=== PATIENT | male | born 1935 | race Caucasian/White ===

== ENCOUNTER → 2017-02-02 | Outpatient (REF) | LOC: ZLAB.WCH 11:26 | DX: Z01.89 Encounter for other specified special examinations (principal) ==

== ENCOUNTER → 2017-02-10 | Outpatient (REF) | LOC: ZLAB.WCH 09:25 | DX: Z01.89 Encounter for other specified special examinations (principal) ==

== ENCOUNTER → 2017-02-17 | Outpatient (REF) | LOC: ZLAB.WCH 09:15 | DX: Z01.89 Encounter for other specified special examinations (principal) ==

== ENCOUNTER → 2018-08-18 | Outpatient (REF) | LOC: ZLAB.WCH 16:08 | DX: Z01.89 Encounter for other specified special examinations (principal) ==

== ENCOUNTER → 2018-11-04 | Outpatient (REF) | LOC: ZLAB.WCH 15:28 | DX: Z01.89 Encounter for other specified special examinations (principal) ==

== ENCOUNTER 2020-09-10 22:02 | Inpatient (IN) | payer MEDICARE, OTHER ==
[~2020-09-10] VITALS: Ht 182.9 cm; Wt 73.1 kg
[2020-09-10 23:19] LABS: BASO % 0.2 % (0.0-2.0); GRAN # 4.3 (1.4-6.5); GRAN % 75.4 % (42.2-75.2); HEMATOCRIT 43.8 % (42.0-52.0); HEMOGLOBIN 14.8 g/dl (13.5-18.0); LYMPH # 0.9 (1.2-3.4); LYMPH % 15.3 % (20.0-51.0); MEAN CELL VOLUME 94 fl (80.0-100.0); MEAN CORPUSCULAR HEMOGLOBIN 32 pg (27.0-31.0); MEAN CORPUSCULAR HGB CONC 34 g/dl (33.0-37.0); MEAN PLATELET VOLUME 11.9 fl (7.4-10.4); MONO # 0.5 (0.1-0.6); MONO % 8.7 % (1.7-9.3); PLATELET COUNT 130 K/mm3 (130-400); RED BLOOD COUNT 4.66 M/mm3 (4.20-5.60); REDCELL DISTRIBUTION WIDTH-CV 13.3 % (11.5-14.5)
[2020-09-10 23:28] LABS: ALBUMIN 3.7 gm/dL (3.5-5.0); BILIRUBIN,TOTAL 0.6 mg/dL (0.0-1.0); CALCIUM 8.9 mg/dL (8.4-10.2); CREATININE, serum 1.06 (0.66-1.25); TOTAL PROTEIN 7.4 gm/dL (6.4-8.2)
[2020-09-11] MEDS ORDERED: ARICEPT10 MG PO (03:37)
[2020-09-11] MEDS ORDERED: NORVASC 5MG5 MG/TAB PO (03:37)
[2020-09-11] MEDS ORDERED: MOBIC15 MG PO (03:37)
[2020-09-11] MEDS ORDERED: FLOMAX 0.40.4 MG/CAP PO (03:37)
[2020-09-11] MEDS ORDERED: LOPRESSOR 225 MG/TAB PO (03:37)
[2020-09-11] MEDS ORDERED: LIPITOR 40MG TA40 MG PO (03:37)
[2020-09-11] MEDS ORDERED: NAMENDA5 MG PO (03:38)
[2020-09-11] MEDS ORDERED: VITAMIN D31000 I1 PO (04:15)
[2020-09-11] MEDS ORDERED: ASPIRIN 81M81 MG/TA2 PO (04:15)
[2020-09-11] MEDS ORDERED: VITAMIN B12 781 TAB PO (04:16)
[2020-09-11] MEDS ORDERED: B-121000 MCG PO (04:17)
[2020-09-11] MEDS ORDERED: MELATONIN5 M1 SL (04:20)
[2020-09-11] MEDS ORDERED: PHARMASSURE ZIN50 MG PO (04:22)
[2020-09-11] MEDS ORDERED: TYLENOL 325MG325 MG PO (04:23)
[2020-09-11] MEDS ORDERED: PEPCID 20MG TAB20 MG PO (04:23)
[2020-09-11] MEDS ORDERED: IMODIUM 2MG CAPS2 MG PO (04:23)
[2020-09-11] MEDS ORDERED: MILK OF MA400 MG/52 PO (04:24)
[2020-09-11 05:32] VITALS: BP 134/72; PULSE 57; TEMP 98.1
--- NOTE | 2020-09-11 05:40 | NUR ---
Received patient via stretcher from ER. Seen patient drowsy. He opens his eye by verbal command. Patient has limited verbal capacity. He would just open his eyes and stare if being asked with quetions or educate with plan of care. Oral done provided as patient's mouth is dry. He is on tele. With IV on left hand. Started with NS at 75ml/hr. Antibiotics given. Potassium not given yet as Doxycycline still infusing. Tried to find another site to start the Potassium but cannot find a vein on his right arm. He is on O2 t 4lpm via NC. Changed patient's gown to yellow, placed yellow socks. Bed alarm on. Baby monitor placed inside the room.
--- NOTE | 2020-09-11 06:42 | NUR ---
Patient's daughter called and said that the patient is non-verbal and doesn't commnunicate at all. She doesn't know the list of medicines the patient take as well. Asked her on how does the patient takes his medicines and she said that as far as she knows she can take them whole with no problems. Informed her that a baby monitor was placed and bed alarm was on so we can monitor the patient.
[2020-09-11 06:54] LABS: ARTERIAL BLD GAS O2 SATURATION 96.6 % (92-100); ARTERIAL BLOOD GAS HCO3 27.8 meq/L (22-26); ARTERIAL BLOOD GAS PCO2 39.2 mmHg (35-45); ARTERIAL BLOOD GAS PO2 85.7 mmHg (80-100); ARTERIAL BLOOD GAS pH 7.47 (7.35-7.45)
--- NOTE | 2020-09-11 07:58 | NUR ---
PATIENT ASSESSMENT COMPLETED. LAB INTO DRAW LAB ASSISTANCE PROVIDED. PATIENT IS FOUND TO HAVE PULLED OUT HIS IV TO THE LEFT HAND. THIS WAS REMOVED AND WILL ATTEMPT TO START A NEW IV. PATIENT DOES ANSWER SOME SIMPLE QUESTIONS UNAWARE OF PLACE OR TIME.
[2020-09-11 08:03] VITALS: BP 110/56; PULSE 52; TEMP 97.8
[2020-09-11 08:15] LABS: BASO % 0.2 % (0.0-2.0); GRAN # 3.8 (1.4-6.5); GRAN % 61.5 % (42.2-75.2); HEMATOCRIT 43.7 % (42.0-52.0); HEMOGLOBIN 14.7 g/dl (13.5-18.0); LYMPH # 1.9 (1.2-3.4); LYMPH % 30.1 % (20.0-51.0); MEAN CELL VOLUME 95 fl (80.0-100.0); MEAN CORPUSCULAR HEMOGLOBIN 32 pg (27.0-31.0); MEAN CORPUSCULAR HGB CONC 34 g/dl (33.0-37.0); MONO # 0.5 (0.1-0.6); MONO % 7.5 % (1.7-9.3); PLATELET COUNT 120 K/mm3 (130-400); RED BLOOD COUNT 4.58 M/mm3 (4.20-5.60); REDCELL DISTRIBUTION WIDTH-CV 13.4 % (11.5-14.5)
[2020-09-11 08:28] LABS: CALCIUM 8.5 mg/dL (8.4-10.2); CREATININE, serum 1.36 (0.66-1.25); POTASSIUM 3.9 mmol/L (3.4-5.0)
[2020-09-11 08:38] LABS: INR 1.2 (0.8-3.0); PARTIAL THROMBOPLASTIN TIME 34.9 SECONDS (26.0-37.0); PROTHROMBIN TIME 13.6 SECONDS (9.7-12.8)
[2020-09-11 08:55] LABS: C-REACTIVE PROTEIN 20.7 mg/dL (0.0-0.9); TROPONIN-I 0.092 ng/mL (0.000-0.035)
--- NOTE | 2020-09-11 11:16 | NUR ---
PATIENT IS RESTING IN BED. I ATTEMPT TO WAKE HIM UP TO SEE IF HE COULD TAKE A DRINK OF WATER BUT HE LOOKS AT ME AND CLOSES HIS EYES AND GOES BACK TO SLEEP.
--- NOTE | 2020-09-11 11:20 | NUR ---
First visit from the city planner. No needs right now.
--- NOTE | 2020-09-11 13:15 | NUR ---
LEFT MESSAGE FOR DR. GROVE FOR THE CONSULT.
--- NOTE | 2020-09-11 13:52 | NUR ---
The patient has a history of dementia and is COVID positive. GARY attempted to contact the patient's son, Luis Alfredo Alarcon, to complete intake. The number kept ringing. GARY then contacted the patient's [id number], Eileen (ph#[phone]), to complete intake. The patient resides at [facility]. His primary care provier is Mindy Zapata APRN. Eileen reports that the plan is for the patient to return back to [facility] upon discharge. The patient's DPOA-HC is in his chart. His DPOA-HC is his son, Luis Alfredo Alarcon. Eileen provided this GARY with his correct phone number: [phone]. GARY faxed updates to [facility].
--- NOTE | 2020-09-11 14:03 | NUR ---
Carpet Installer spoke with staff at [facility]. SW was advised they will accept patient back upon discharge.
[2020-09-11 14:16] VITALS: BP 107/46; PULSE 54; TEMP 98.8
[2020-09-11 15:42] VITALS: BP 110/60; PULSE 58; TEMP 98.4
[2020-09-11 17:31] LABS: POTASSIUM 3.1 mmol/L (3.4-5.0)
[2020-09-11 17:47] LABS: TROPONIN-I 3 HR POST INITIAL 0.066 ng/mL (0.000-0.034)
[2020-09-11 19:21] VITALS: BP 112/57; PULSE 56; TEMP 97.7
--- NOTE | 2020-09-11 19:40 | NUR ---
Received report from Elida. Seen patient asleep on bed. With PICC line on his right upper arm infusing Potassium Chloride and Ns at 75ml/hr. Night oral medicines not given as patient is not alert enough to take them and he might aspirate. Changed patient's diaper with the help of FURNITURE RENTAL CONSULTANT. Patient opened his eyes when we moved and changed him. Bed alarm on.
--- NOTE | 2020-09-11 21:19 | NUR ---
Tried calling Dr. Vaz to relay Troponin. No answer. Troponin is going down. It is now at 0.061.
--- NOTE | 2020-09-11 21:31 | NUR ---
Dr. Vaz called and informed him regarding troponin result. Updated him as well that oral medications were not given due to patient being drowsy. Informed him that Dr. Ewing called and updated him about the patient and that he put an order for Remdesivir.
[2020-09-12 00:06] VITALS: BP 127/90; PULSE 58; TEMP 97.5
--- NOTE | 2020-09-12 00:25 | NUR ---
Dr. Vaz made his rounds. Informed him that Tele called saying patient's heart rate was at 45-50 bpm. Patient asymptomatic, currently asleep. Asked Dr. Vaz if we can change the tele parameters and he agreed to have it to 45bpm.
[2020-09-12 03:47] VITALS: BP 124/51; PULSE 49; TEMP 98.5
--- NOTE | 2020-09-12 04:15 | NUR ---
Changed patient's diaper. Repositioned patient.
--- NOTE | 2020-09-12 05:11 | NUR ---
Called Dr. Vaz to update that tele called saying heart rate was 38-40's. Dr. Vaz said to just observe the patient. Currently he was just asleep.
[2020-09-12 06:57] LABS: GRAN # 2.9 (1.4-6.5); GRAN % 77.5 % (42.2-75.2); HEMATOCRIT 37.6 % (42.0-52.0); LYMPH # 0.7 (1.2-3.4); MEAN CELL VOLUME 96 fl (80.0-100.0); MEAN CORPUSCULAR HEMOGLOBIN 32 pg (27.0-31.0); MEAN CORPUSCULAR HGB CONC 33 g/dl (33.0-37.0); MEAN PLATELET VOLUME 12.3 fl (7.4-10.4); MONO # 0.1 (0.1-0.6); PLATELET COUNT 113 K/mm3 (130-400); RED BLOOD COUNT 3.93 M/mm3 (4.20-5.60); REDCELL DISTRIBUTION WIDTH-CV 13.3 % (11.5-14.5)
[2020-09-12 07:01] LABS: HEMOGLOBIN 12.4 g/dl (13.5-18.0)
[2020-09-12 07:05] LABS: CALCIUM 7.7 mg/dL (8.4-10.2); POTASSIUM 3.9 mmol/L (3.4-5.0)
[2020-09-12 08:08] VITALS: BP 119/54; PULSE 48; TEMP 97.4
--- NOTE | 2020-09-12 09:00 | NUR ---
Pt alert and oriented at time of assessment but does have intermittent confusion. He currently denies pain. No SOB. Currently on 4L O2 via NC. Pt incontinent of urine, pericare provided. IVF infusing into PICC in RUE. Pt repositioned. Fall precautions in place. WIll continue to monitor.
[2020-09-12 11:07] VITALS: BP 137/56; PULSE 47; TEMP 97.2
--- NOTE | 2020-09-12 14:08 | NUR ---
Assistant Professor Of Economics faxed clinical updates to [facility].
[2020-09-12 14:59] VITALS: BP 103/57; PULSE 60; TEMP 98.3
--- NOTE | 2020-09-12 18:49 | NUR ---
Report received from BREA Morales. Pt resting in bed without complaint. Bed alarm on, call light in reach, video monitor in place.
[2020-09-12 20:28] VITALS: BP 130/62; PULSE 60; TEMP 97.7
--- NOTE | 2020-09-12 21:30 | NUR ---
Shift assessment complete. Pt with NC at 4L O2. Continues to remove NC stating nostrils are irritated. RT notified to add bubbler. Sats remaining 90% or higher. Heart RRR, lungs CTA, alert and oriented to self. STEPHEN PICC w/o S/S complication. NS running at 75 ml/hr. Blanchable redness to bottom. Denies needs. Will continue to monitor.
[2020-09-13] VITALS (7 sets, daily range): BP systolic 103–132; BP diastolic 50–78; PULSE 55–92; TEMP 97.3–98
[2020-09-13 05:12] LABS: BASO % 0.1 % (0.0-2.0); EOS % 0.1 % (0-4.0); GRAN # 6.3 (1.4-6.5); GRAN % 79.2 % (42.2-75.2); HEMATOCRIT 38.2 % (42.0-52.0); HEMOGLOBIN 12.9 g/dl (13.5-18.0); MEAN CELL VOLUME 93 fl (80.0-100.0); MEAN CORPUSCULAR HEMOGLOBIN 32 pg (27.0-31.0); MEAN CORPUSCULAR HGB CONC 34 g/dl (33.0-37.0); MEAN PLATELET VOLUME 12.3 fl (7.4-10.4); MONO # 0.7 (0.1-0.6); MONO % 8.2 % (1.7-9.3); PLATELET COUNT 134 K/mm3 (130-400); REDCELL DISTRIBUTION WIDTH-CV 13.2 % (11.5-14.5)
[2020-09-13 05:21] LABS: CALCIUM 8.4 mg/dL (8.4-10.2); CREATININE, serum 0.86 (0.66-1.25); POTASSIUM 4.2 mmol/L (3.4-5.0)
--- NOTE | 2020-09-13 07:06 | NUR ---
Rested in bed with eyes closed through night without complaint. IV antibiotics administered. Afebrile, denies SOA, sats remaining above 90% on RA for most of night.
--- NOTE | 2020-09-13 08:00 | NUR ---
Pt assessment complete. Pt is laying in bed upon entry, he is oriented to person and time but thinks he is in the hospital in [place]. Pt denies any pain. Oxygen tubing off of patient's face upon entry, O2 sat at 94%. Will keep oxygen off and continue to monitor. Pt has no increase work of breathing. Occasional wet cough present. Pt refusing to eat breakfast this am. Has not ate much since arrival. Does take pills well with water. Pt incontinent of urine, pericare provided. Fall precautions in place. Will continue to monitor.
--- NOTE | 2020-09-13 18:38 | NUR ---
Pt refused to eat today, drank some of his ensure. Remained on RA through the day. Reported no pain. Fall precautions in place.
--- NOTE | 2020-09-13 18:40 | NUR ---
Report received from BREA Morales. Pt sitting up in bed with eyes closed. Call light in reach. Will continue to monitor.
--- NOTE | 2020-09-13 21:20 | NUR ---
Shift assessment complete. Pt lying in bed with eyes closed upon entering, rouses easily to voice. Incontinent of urine, brief and bed sheets changed. Mild redness noted to bottom and scrotum. Pt repositioned lying left side. Heart RRR, lungs CTA, A&Ox4 with intermittent confusion. Remains on RA with sats in mid 90s. Call light in reach.
[2020-09-14 04:06] VITALS: BP 96/53; PULSE 56; TEMP 97.6
--- NOTE | 2020-09-14 06:20 | NUR ---
Rested well throughout night with no complaints. Remains on room air with sats greater than 90%. Afebrile this shift.
[2020-09-14 08:38] VITALS: BP 97/39; PULSE 64; TEMP 97.6
--- NOTE | 2020-09-14 10:35 | NUR ---
Assessment complete. Patient sleeping on entry, easily aroused by vocal stimulation. He is alert but not completely oiented. No complaints of pain or discomfort. Patient was repositioned in bed and sat up for breakfast which he some of independently. Patient states no to most things but is willing once prompted. Took pills well whole with reminders to swallow. Both myself and patient spoke with his son this morning. NO other needs were expressed at this time. Will continue to monitor. Call light is in reach.
[2020-09-14 12:02] VITALS: BP 114/58; PULSE 50; TEMP 97.6
[2020-09-14 16:17] VITALS: BP 119/51; PULSE 87; TEMP 97.5
--- NOTE | 2020-09-14 17:21 | NUR ---
Patient has had an uneventful shift. Kayla has slept most of the day. No complaints of pain or discomfort. He has spoke to his son a few times. Sons number is in the room. Incontinent care was provided to the patient. Continuing to monitor. Call light is in reach.
[2020-09-14 19:16] VITALS: BP 117/62; PULSE 44; TEMP 97.4
--- NOTE | 2020-09-14 20:41 | NUR ---
Resting in bed. Assessment complete. Lungs diminished throughout. Heart sounds normal. Bowels active x4. Pulses present throughout. No edema noted. PICC to right upper without complications. Denies pain. Incontinent of urine. Cares provided. Repositioned. Call light in reach.
[2020-09-14 23:26] VITALS: BP 112/63; PULSE 46; TEMP 97.5
--- NOTE | 2020-09-15 00:07 | NUR ---
Resting in bed. Denies needs. Denies pain. Repositioned. Call light in reach.
--- NOTE | 2020-09-15 00:30 | NUR ---
Telemetry called stating patient at 38 on pulse. Patient VS stable. Spoke with Dr. Vaz, lower limit to 35. Will continue to monitor.
[2020-09-15 04:15] VITALS: BP 127/65; PULSE 68
--- NOTE | 2020-09-15 04:23 | NUR ---
Resting in bed. Denies pain. Denies needs. Call light in reach.
--- NOTE | 2020-09-15 06:32 | NUR ---
Patient had uneventful night. Repositioned Q2H. Resting in bed this AM. Call light in reach.
--- NOTE | 2020-09-15 06:45 | NUR ---
Report given to BREA Ramsey
[2020-09-15 07:11] LABS: CALCIUM 8.5 mg/dL (8.4-10.2); CREATININE, serum 0.73 (0.66-1.25); GRAN # 1.8 (1.4-6.5); GRAN % 68.6 % (42.2-75.2); HEMOGLOBIN 11.2 g/dl (13.5-18.0); LYMPH # 0.5 (1.2-3.4); LYMPH % 20.9 % (20.0-51.0); MEAN CELL VOLUME 92 fl (80.0-100.0); MEAN CORPUSCULAR HEMOGLOBIN 32 pg (27.0-31.0); MEAN CORPUSCULAR HGB CONC 34 g/dl (33.0-37.0); MEAN PLATELET VOLUME 12.5 fl (7.4-10.4); MONO # 0.3 (0.1-0.6); MONO % 9.7 % (1.7-9.3); PLATELET COUNT 128 K/mm3 (130-400); POTASSIUM 3.9 mmol/L (3.4-5.0); RED BLOOD COUNT 3.56 M/mm3 (4.20-5.60); REDCELL DISTRIBUTION WIDTH-CV 13.3 % (11.5-14.5)
[2020-09-15 07:20] LABS: HEMATOCRIT 32.8 % (42.0-52.0)
[2020-09-15 09:00] VITALS: BP 139/56; PULSE 53; TEMP 97.4
--- NOTE | 2020-09-15 10:30 | NUR ---
Assessment complete. Patient alert on entry this morning, minimally conversational. No complaints of pain or discomfort. Incontinent cares provided at this time. Patient follows directions well. Refused breakfast and when I encouraged he did become angry. He is now resting, eyes closed at this time. Continuing to monitor. Call light is in reach.
[2020-09-15 12:04] VITALS: BP 115/57; PULSE 52; TEMP 98.1
[2020-09-15 16:59] VITALS: BP 112/59; PULSE 51; TEMP 97.7
--- NOTE | 2020-09-15 17:37 | NUR ---
Patient has had very uneventful day. He refuses all meals, continuosly. Patient has slept all day. No coomplaints of pain or discomfort. Incontinent care provide multiple times through the day. Continuing to monitor. Call light is in reach.
[2020-09-15 20:00] VITALS: BP 114/53; PULSE 48; TEMP 97.9
[2020-09-15 23:43] VITALS: BP 124/55; PULSE 50; TEMP 97.6
[2020-09-16 04:07] VITALS: BP 130/63; PULSE 68; TEMP 97.6
--- NOTE | 2020-09-16 04:28 | NUR ---
Pt has had an uneventful night. The patient has slept well. Pt refused 0400 vitals stating he doesn't need them. Call light in within reach, and bed alarm is on. There are no further concerns at this time. Will continue to monitor.
[2020-09-16 07:20] VITALS: BP 113/59; PULSE 44; TEMP 97.5
[2020-09-16 07:44] LABS: CALCIUM 8.4 mg/dL (8.4-10.2); CREATININE, serum 0.72 (0.66-1.25); GRAN # 2.3 (1.4-6.5); GRAN % 63.8 % (42.2-75.2); HEMOGLOBIN 11.3 g/dl (13.5-18.0); LYMPH # 0.9 (1.2-3.4); MEAN CELL VOLUME 93 fl (80.0-100.0); MEAN CORPUSCULAR HEMOGLOBIN 32 pg (27.0-31.0); MEAN CORPUSCULAR HGB CONC 34 g/dl (33.0-37.0); MEAN PLATELET VOLUME 12.6 fl (7.4-10.4); MONO # 0.4 (0.1-0.6); MONO % 11.1 % (1.7-9.3); PLATELET COUNT 131 K/mm3 (130-400); RED BLOOD COUNT 3.55 M/mm3 (4.20-5.60); REDCELL DISTRIBUTION WIDTH-CV 13.3 % (11.5-14.5)
[2020-09-16 07:57] LABS: HEMATOCRIT 32.9 % (42.0-52.0)
--- NOTE | 2020-09-16 09:30 | NUR ---
Patient reposition to supine position.
--- NOTE | 2020-09-16 10:29 | NUR ---
PATIENT ALERT, NO ORIENTED. APPEAR COMFORTABLE IN BED. REFUSE BREAKFAST. PATIENT RESTING IN BED AT THIS TIME.
[2020-09-16 11:55] VITALS: BP 119/35; PULSE 45; TEMP 97.6
--- NOTE | 2020-09-16 17:41 | NUR ---
Patient in bed, Q2 turn. patient refuse most meals, drinks most of the nutrition supplements. Patient had wet breif x 1. 0n 8L 02 at 92-93%. plan is to continue to titrate o2 down as tolerated by patient. Patient had a shower today, Nurse aide assisted. patient said his nose congestion has improved, no more bleeding nose.
--- NOTE | 2020-09-16 19:09 | NUR ---
repositioned patient continuously. patient refuse meals. drank some of his supplement. patient refuse vitals this evening. Patient resting in bed at this time.
[2020-09-16 19:13] VITALS: BP 103/47; PULSE 57; TEMP 97.3
--- NOTE | 2020-09-16 19:44 | NUR ---
PT LAYING IN BED AT THIS TIME. HE HAS REFUSED FOOD TODAY, AND DRANK 80% OF ENSURE. REFUSING CARES TODAY PER REPORT FROM BREA ROCK. NO OTHER CONCERNS AT THIS TIME. PT IS CURRENTLY STABLE. CALL LIGHT IS AT BEDSIDE AND WITHIN REACH.
[2020-09-17 00:40] VITALS: BP 101/49; PULSE 50; TEMP 97.3
[2020-09-17 04:09] VITALS: BP 110/48; PULSE 63; TEMP 97.8
[2020-09-17 06:01] LABS: GRAN # 4.2 (1.4-6.5); GRAN % 73.5 % (42.2-75.2); HEMOGLOBIN 11.3 g/dl (13.5-18.0); LYMPH % 17.2 % (20.0-51.0); MEAN CELL VOLUME 93 fl (80.0-100.0); MEAN CORPUSCULAR HEMOGLOBIN 32 pg (27.0-31.0); MEAN CORPUSCULAR HGB CONC 34 g/dl (33.0-37.0); MEAN PLATELET VOLUME 12.5 fl (7.4-10.4); MONO # 0.5 (0.1-0.6); MONO % 8.4 % (1.7-9.3); PLATELET COUNT 151 K/mm3 (130-400); RED BLOOD COUNT 3.56 M/mm3 (4.20-5.60); REDCELL DISTRIBUTION WIDTH-CV 13.4 % (11.5-14.5)
[2020-09-17 06:07] LABS: CALCIUM 8.3 mg/dL (8.4-10.2); CREATININE, serum 0.73 (0.66-1.25); POTASSIUM 3.9 mmol/L (3.4-5.0)
[2020-09-17 06:11] LABS: HEMATOCRIT 33.1 % (42.0-52.0)
[2020-09-17 09:29] VITALS: BP 121/52; PULSE 63; TEMP 97.4
[2020-09-17 12:42] VITALS: BP 99/54; PULSE 46; TEMP 97.4
--- NOTE | 2020-09-17 16:13 | NUR ---
Nonprofit Director collaborated with Hospitalist who advised patient will be ready for discharge tomorrow. GARY contacted Nelli at [facility] who advised they are good to accept. Nelli requested GARY call in the morning once orders are in to set transport time.
[2020-09-17 17:07] VITALS: BP 115/52; PULSE 56; TEMP 98
--- NOTE | 2020-09-17 18:42 | NUR ---
Patient resting in bed. turned patient q2h. patient refused morning medication. drank some of nutrition supplement. Discussed with equipment worker, plan is to discharge patient tomorrow to [facility], where patient was admitted from.
--- NOTE | 2020-09-17 19:40 | NUR ---
emergency vehicle technician called to inform about bradycardiac, heart rate 38. RN informed Dr Vaz, order was given to reduce heart rate range to 35. Patient does not appear symptomatic. Patient resting in bed
--- NOTE | 2020-09-17 20:00 | NUR ---
Assessment complete. Patient is resting in bed but arouses to voice. He is confused but does not appear to be in pain. No edema is noted. He is tolerating breathing on RA well. He can follow commands. His bottom is not reddened. Bed alarm set.
[2020-09-17 20:11] VITALS: BP 107/69; PULSE 49; TEMP 97.9
--- NOTE | 2020-09-18 05:26 | NUR ---
Patient has had a restful night. He was incontinent of urine and mark care/linen change was provided. He has refused PO meds and vital signs for most of the night.
[2020-09-18 07:11] LABS: HEMOGLOBIN 12.4 g/dl (13.5-18.0); MEAN CELL VOLUME 94 fl (80.0-100.0); MEAN CORPUSCULAR HEMOGLOBIN 32 pg (27.0-31.0); MEAN CORPUSCULAR HGB CONC 34 g/dl (33.0-37.0); MEAN PLATELET VOLUME 12.4 fl (7.4-10.4); PLATELET COUNT 171 K/mm3 (130-400); RED BLOOD COUNT 3.85 M/mm3 (4.20-5.60); REDCELL DISTRIBUTION WIDTH-CV 13.8 % (11.5-14.5)
[2020-09-18 07:15] LABS: HEMATOCRIT 36.2 % (42.0-52.0)
[2020-09-18 07:20] LABS: CALCIUM 8.2 mg/dL (8.4-10.2); CREATININE, serum 0.74 (0.66-1.25); POTASSIUM 3.5 mmol/L (3.4-5.0)
[2020-09-18 07:49] LABS: BAND 1 % (0-10); LYMPHOCYTE 27 % (20.0-51.0); METAMYELOCYTE 1 % (0-0); NEUTROPHILS 61 % (42.0-75.2); NUCLEATED RED BLOOD CELL 2 (0-6); OVALOCYTES 1+; PLATELET ESTIMATE NORMAL (NORMAL)
[2020-09-18 08:14] VITALS: BP 111/50; PULSE 56; TEMP 98
--- NOTE | 2020-09-18 09:37 | NUR ---
Pt assessment complete. Pt is laying in bed with eyes closed upon entry, arouses to voice. He knows he is in the hospital, does not know the date. He denies any pain. Breathing is even and unlabored on RA. Pt denies SOB. Pt refusing breakfast this morning. Took pills without issues. No needs at this time. Call light within reach.
[2020-09-18] MEDS ORDERED: DECADRON6 MG PO (10:26)
[2020-09-18 10:42] VITALS: BP 111/50; PULSE 56; TEMP 98
[2020-09-18 11:51] VITALS: BP 105/51; PULSE 56; TEMP 97.6
--- NOTE | 2020-09-18 13:20 | NUR ---
[facility] PICC removed from [facility] by BREA Taylor.
--- NOTE | 2020-09-18 13:53 | NUR ---
Report given to [facility].
--- NOTE | 2020-09-18 16:10 | NUR ---
Oil Well Engineer collaborated with Hospitalist who advised patient is ready for discharge today. SW contacted Nelli at [facility] and set transport time for 1300. GARY contacted patient's daughter in law, Eileen to provide transport time. GARY faxed discharge orders to Nelli at [place]. No additional needs at this time.
== END 2020-09-18 13:20 | DRG 177 ==
LOC: COL.ER 22:02 → MEDICAL 09-11 02:55
PROVIDERS: Emergency Medicine; Family Medicine; Hospitalist; Nurse Practitioner Family; ADMIT Student in an Organized Health Care Education/Training Program
PROC: XW033E5 Introduction of Remdesivir Anti-infective into Peripheral Vein, Percutaneous Approach, New Technology Group 5 (ICD-10-PCS; principal; 2020-09-11)
PROC: 02HV33Z Insertion of Infusion Device into Superior Vena Cava, Percutaneous Approach (ICD-10-PCS; 2020-09-11)
DX: U07.1 COVID-19 (principal); J12.89 Other viral pneumonia; J96.01 Acute respiratory failure with hypoxia; I21.A1 Myocardial infarction type 2; N17.9 Acute kidney failure, unspecified; E23.0 Hypopituitarism; Z66 Do not resuscitate; I10 Essential (primary) hypertension; E78.5 Hyperlipidemia, unspecified; K21.9 Gastro-esophageal reflux disease without esophagitis; E87.6 Hypokalemia; R00.1 Bradycardia, unspecified; N40.0 Benign prostatic hyperplasia without lower urinary tract symptoms; I69.391 Dysphagia following cerebral infarction; I69.318 Other symptoms and signs involving cognitive functions following cerebral infarction; F03.90 Unspecified dementia, unspecified severity, without behavioral disturbance, psychotic disturbance, mood disturbance, and anxiety
CPT/HCPCS: OP; 99223-AI; 99232-AI; 99233-AI; 99239; C1751; J0696; J1100; J1650; J3370; J3480; J7030; J7050; J8540